=== PATIENT | female | born 1940 | race Caucasian/White ===

== ENCOUNTER → 2020-03-28 09:47 | Outpatient (CLI) | payer MEDICARE, OTHER, SELFPAY ==
--- NOTE | ~2020-03-28 | XR_ITS ---
EXAMINATION: XR humerus LT DATE: 03/28/2020 10:10 INDICATION: Mid shaft left upper arm pain. TECHNIQUE: Internal and externally rotated views of the left humerus were obtained. COMPARISON: None. FINDINGS: Alignment is normal. No fracture. 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 No cortical erosions or periosteal reaction. Soft tissues are unremar kable. IMPRESSION: 1. 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 Reviewed, dictated and finalized at location A.
== END ==
PROVIDERS: PCP Physician Assistant; Visit Provider Physician Assistant
DX: M79.602 Pain in left arm (principal); M19.012 Primary osteoarthritis, left shoulder; M19.022 Primary osteoarthritis, left elbow
CPT/HCPCS: 73060